=== PATIENT | female | born 1990 | race Caucasian/White ===

== ENCOUNTER 2019-01-10 07:36 | Emergency (ER) | payer OTHER ==
[2019-01-10] MEDS ORDERED: Zofran 4 MG/2 ML VIAL ONE (07:54)
[2019-01-10] MEDS ORDERED: MORPHINE SULFATE 4 MG INJ ONE (07:54)
[2019-01-10] MEDS ORDERED: Sodium Chloride 0.9% 1000 ML 1,000 ML ONE (07:54)
--- NOTE | 2019-01-10 07:55 | ERPHSYRPT ---
- History of Present Illness Time Seen by Provider: 01/10/19 07:52 Historian: patient Exam Limitations: no limitations Patient Subjective Stated Complaint: Pt state "We had a miscarraige in august and I have been bleding for five days and I am still bleeding. Two hours ago I started to have severe abdominal pain." Triage Nursing Assessment: Pt presented alert and oriented X 3, skin pwd. Pt ambulates holding her lower abdomen, pt is shaking uncontrollably and moaning. PT resting in the position, keeping legs bent up. Physician History: 28-year-old white female arrives with complaint of suprapubic abdominal pain for 2 hours positive nausea positive diarrhea. Patient states she's been having a menstrual period for 5 days apparently had a miscarriage in August. Past medical history negative. Past surgical history patient denies. Timing/Duration: today Activities at Onset: none (2 hours) Quality: aching, sharpness Abdominal Pain Onset Location: suprapubic Pain Radiation: no radiation Severity of Pain-Max: moderate Severity of Pain-Current: moderate Modifying Factors: Improves With: nothing Associated Symptoms: back, nausea, No chest pain, No diaphoresis, No diarrhea, No fever/chills, No fatigue, No headache, No heartburn, No loss of appetite, No neck pain, No rash, No shortness of breath, No syncope, No vomiting, No weakness Previous symptoms: no prior history Allergies/Adverse Reactions: No Known Drug Allergies Allergy (Unverified 01/10/19 07:48) Hx Tetanus, Diphtheria Vaccination/Date Given: No Hx Influenza Vaccination/Date Given: No Hx Pneumococcal Vaccination/Date Given: No Immunizations Up to Date: Yes - Review of Systems Constitutional: No Fever, No Chills Eyes: No Symptoms Ears, Nose, & Throat: No Symptoms Respiratory: No Cough, No Dyspnea Cardiac: No Chest Pain, No Edema, No Syncope Abdominal/Gastrointestinal: Abdominal Pain, Nausea, Diarrhea, No Vomiting, No Constipation, No Hematemesis, No Hematochezia, No Melena, No Dysphagia, No Appetite Changes Genitourinary Symptoms: No Dysuria Musculoskeletal: No Back Pain, No Neck Pain Skin: No Rash Neurological: No Dizziness, No Focal Weakness, No Sensory Changes Psychological: No Symptoms Endocrine: No Symptoms All Other Systems: Reviewed and Negative - Past Medical History Pertinent Past Medical History: Yes - Past Surgical History Past Surgical History: No - Social History Smoking Status: Never smoker Exposure to second hand smoke: No Drug Use: none Patient Lives Alone: No - Female History Hx Last Menstrual Period: 01/05/2019 Hx Now: No - Nursing Vital Signs Nursing Vital Signs: Initial Vital Signs Temperature 97.6 F 01/10/19 07:42 Pulse Rate 82 01/10/19 07:42 Respiratory Rate 22 01/10/19 07:42 Blood Pressure 140/69 01/10/19 07:42 O2 Sat by Pulse Oximetry 100 01/10/19 07:42 Pain Scale Pain Intensity 6 - Physical Exam General Appearance: moderate distress, alert Eye Exam: PERRL/EOMI, eyes nml inspection Ears, Nose, Throat Exam: normal ENT inspection, pharynx normal, moist mucous membranes Neck Exam: normal inspection, non-tender, supple, full range of motion Respiratory Exam: normal breath sounds, lungs clear, No respiratory distress Cardiovascular Exam: regular rate/rhythm, normal heart sounds, capillary refill <2 sec ( both) Gastrointestinal/Abdomen Exam: soft, normal bowel sounds, tenderness ( suprapubic tenderness), No distention, No mass, No guarding ( will find a), No ecchymosis, No pulsatile mass, No rebound, No hernia, No hepatomegaly, No organomegaly, No splenomegaly (is) Back Exam: normal inspection, normal range of motion, No CVA tenderness, No vertebral tenderness Extremity Exam: normal inspection, normal range of motion, pelvis stable Neurologic Exam: alert, oriented x 3, cooperative, case management specialist II-XII nml as tested, normal mood/affect, nml cerebellar function, sensation nml, No motor deficits Skin Exam: normal color, warm, dry SpO2 Interpretation: normal (100%) SpO2: 100 - Course Nursing assessment & vital signs reviewed: Yes - CT Exams Abdomen/Pelvis CT Interpretation: Discussed w/radiologist (CT abdomen and pelvis: 1. Mild small bowel wall thickening rule out enteritis distended stomach may be related to. Tiny cul-de-sac fluid presumed from ruptured/leaking cyst 3. Remaining CT abdomen and pelvis without contrast exam is negative.) Ordered Tests: Active Orders 24 hr Category Date Time Status IV Insertion STAT Care 01/10/19 07:50 Active ABDOMEN AND PELVIS W/0 CONTRAS [CT] Stat Exams 01/10/19 08:16 Completed AMYLASE Stat Lab 01/10/19 07:45 Completed CBC W DIFF Stat Lab 01/10/19 07:45 Completed CMP Stat Lab 01/10/19 07:45 Completed HCG QUALITATIVE,SERUM Stat Lab 01/10/19 07:45 Completed LIPASE Stat Lab 01/10/19 07:45 Completed UA W/RFX UR CULTURE Stat Lab 01/10/19 09:36 Completed Medication Summary Discontinued Medications Generic Name Dose Route Start Last Admin Trade Name Yandy PRN Reason Stop Dose Admin Sodium Chloride 1,000 mls @ 999 mls/hr 01/10/19 07:50 01/10/19 09:41 Sodium Chloride 0.9% 1000 Ml IV 01/10/19 08:50 Infused .Q1H1M STA Infusion Sodium Chloride Confirm 01/10/19 07:54 Sodium Chloride 0.9% 1000 Ml Administered 01/10/19 07:55 Dose 1,000 mls @ ud .ROUTE .STK-MED ONE Ketorolac Tromethamine 30 mg 01/10/19 08:17 01/10/19 08:19 Toradol 30 Mg Injection IV 01/10/19 08:18 30 mg STAT ONE Administration Ketorolac Tromethamine Confirm 01/10/19 08:18 Toradol 30 Mg Injection Administered 01/10/19 08:19 Dose 30 mg .ROUTE .STK-MED ONE Morphine Sulfate 4 mg 01/10/19 07:50 01/10/19 07:57 Morphine Sulfate 4 Mg Inj IV 01/10/19 07:51 4 mg STAT ONE Administration Morphine Sulfate Confirm 01/10/19 07:54 Morphine Sulfate 4 Mg Inj Administered 01/10/19 07:55 Dose 4 mg .ROUTE .STK-MED ONE Ondansetron HCl 4 mg 01/10/19 07:50 01/10/19 07:57 Zofran 4 Mg/2 Ml Vial IV 01/10/19 07:51 4 mg STAT ONE Administration Ondansetron HCl Confirm 01/10/19 07:54 Zofran 4 Mg/2 Ml Vial Administered 01/10/19 07:55 Dose 4 mg .ROUTE .STK-MED ONE Potassium Chloride 20 meq 01/10/19 09:48 Klor Con 10 Meq PO 01/10/19 09:49 STAT ONE Lab/Rad Data: Laboratory Result Diagrams 01/10/19 07:45 01/10/19 07:45 Laboratory Results 01/10/19 01/10/19 01/10/19 Range/Units 09:36 07:45 07:45 WBC (4.0-10.5) K/mm3 RBC (4.1-5.4) M/mm3 Hgb (12.0-16.0) gm/dl Hct (35-47) % MCV (78-100) fl MCH (26-32) pg MCHC (32-36) g/dl RDW (11.5-14.0) % Plt Count (150-450) K/mm3 MPV (6-9.5) fl Gran % (36.0-66.0) % Eos # (Auto) (0-0.5) Absolute Lymphs (auto) (1.0-4.6) Absolute Monos (auto) (0.0-1.3) Lymphocytes % (24.0-44.0) % Monocytes % (0.0-12.0) % Eosinophils % (0.00-5.0) % Basophils % (0.0-0.4) % Absolute Granulocytes (1.4-6.9) Basophils # (0-0.4) Sodium 141 (137-145) mmol/L Potassium 3.2 L (3.5-5.1) mmol/L Chloride 104 (98-107) mmol/L Carbon Dioxide 23 (22-30) mmol/L Anion Gap 17.1 H (5-15) MEQ/L BUN 12 (7-17) mg/dL Creatinine 0.62 (0.52-1.04) mg/dL Estimated GFR > 60.0 ML/MIN Glucose 120 H (74-106) mg/dL Calcium 10.0 (8.4-10.2) mg/dL Total Bilirubin 0.40 (0.2-1.3) mg/dL AST 20 (14-36) U/L ALT 14 (0-35) U/L Alkaline Phosphatase 64 (38-126) U/L Serum Total Protein 7.9 (6.3-8.2) g/dL Albumin 4.6 (3.5-5.0) g/dL Amylase 75 (30-110) U/L Lipase 82 (23-300) U/L Serum , Qual NEGATIVE (Negative) Urine Color YELLOW (YELLOW) Urine Appearance CLOUDY (CLEAR) Urine pH 7.0 (5-6) Ur Specific [place] 1.019 (1.005-1.025) Urine Protein NEGATIVE (Negative) Urine Ketones SMALL (NEGATIVE) Urine Blood MODERATE (0-5) Abilio/ul Urine Nitrite NEGATIVE (NEGATIVE) Urine Bilirubin NEGATIVE (NEGATIVE) Urine Urobilinogen NEGATIVE (0-1) mg/dL Ur Leukocyte Esterase NEGATIVE (NEGATIVE) Urine WBC (Auto) 0-2 (0-5) /HPF Urine RBC (Auto) 11-15 (0-2) /HPF U Epithel Cells (Auto) NONE (FEW) /HPF Urine Bacteria (Auto) RARE (NEGATIVE) /HPF Urine Mucus (Auto) SLIGHT (NEGATIVE) /HPF Urine Culture Reflexed NO (NO) Urine Glucose NEGATIVE (NEGATIVE) mg/dL 01/10/19 Range/Units 07:45 WBC 9.0 (4.0-10.5) K/mm3 RBC 4.60 (4.1-5.4) M/mm3 Hgb 14.3 (12.0-16.0) gm/dl Hct 43.4 (35-47) % MCV 94.3 (78-100) fl MCH 31.1 (26-32) pg MCHC 32.9 (32-36) g/dl RDW 12.5 (11.5-14.0) % Plt Count 312 (150-450) K/mm3 MPV 11.3 H (6-9.5) fl Gran % 50.7 (36.0-66.0) % Eos # (Auto) 0.35 (0-0.5) Absolute Lymphs (auto) 3.16 (1.0-4.6) Absolute Monos (auto) 0.88 (0.0-1.3) Lymphocytes % 35.2 (24.0-44.0) % Monocytes % 9.8 (0.0-12.0) % Eosinophils % 3.9 (0.00-5.0) % Basophils % 0.4 (0.0-0.4) % Absolute Granulocytes 4.56 (1.4-6.9) Basophils # 0.04 (0-0.4) Sodium (137-145) mmol/L Potassium (3.5-5.1) mmol/L Chloride (98-107) mmol/L Carbon Dioxide (22-30) mmol/L Anion Gap (5-15) MEQ/L BUN (7-17) mg/dL Creatinine (0.52-1.04) mg/dL Estimated GFR ML/MIN Glucose (74-106) mg/dL Calcium (8.4-10.2) mg/dL Total Bilirubin (0.2-1.3) mg/dL AST (14-36) U/L ALT (0-35) U/L Alkaline Phosphatase (38-126) U/L Serum Total Protein (6.3-8.2) g/dL Albumin (3.5-5.0) g/dL Amylase (30-110) U/L Lipase (23-300) U/L Serum , Qual (Negative) Urine Color (YELLOW) Urine Appearance (CLEAR) Urine pH (5-6) Ur Specific [place] (1.005-1.025) Urine Protein (Negative) Urine Ketones (NEGATIVE) Urine Blood (0-5) Abilio/ul Urine Nitrite (NEGATIVE) Urine Bilirubin (NEGATIVE) Urine Urobilinogen (0-1) mg/dL Ur Leukocyte Esterase (NEGATIVE) Urine WBC (Auto) (0-5) /HPF Urine RBC (Auto) (0-2) /HPF U Epithel Cells (Auto) (FEW) /HPF Urine Bacteria (Auto) (NEGATIVE) /HPF Urine Mucus (Auto) (NEGATIVE) /HPF Urine Culture Reflexed (NO) Urine Glucose (NEGATIVE) mg/dL - Progress Progress: improved Progress Note: 01/10/19 09:55 28-year-old white female previously healthy arrives with complaint of severe suprapubic abdominal pain which has been going on for 2 hours prior to arrival. On arrival patient was severe pain in her suprapubic region patient with some suprapubic tenderness otherwise physical exam essentially normal vitals were stable. Patient was essentially normal laboratory studies with the exception of a potassium of 3.2 patient's anion gap was slightly elevated at 17.1 Urinalysis positive for microcytic hematuria however patient is a. Otherwise negative there is a trace of ketones. Patient's CT of the abdomen impression 1 mild small bowel wall thickening. Rule out enteritis. Distended stomach may be related to. Tiny cul-de-sac fluid present from ruptured/leaking cyst. Remaining CT of the abdomen without contrast is negative. Patient is given 1 L of normal saline she was given 4 mg morphine 4 mg of Zofran and 30 mg of Toradol IV she now is markedly improved and feeling much better. Will plan to discharge patient impression 1 abdominal pain 2, ruptured ovarian cyst. 3. Enteritis. Plan home, plenty of fluids clear fluids only 24-48 hours as needed for pain will write for Bunn for pain. Patient denies illicit drug use she states she has no problems with narcotics inspect is negative. Patient may also take Advil as well. - Departure Departure Disposition: Home Clinical Impression: Ruptured ovarian cyst, Enteritis Abdominal pain Qualifiers: Abdominal location: lower abdomen, unspecified Qualified Code(s): R10.30 - Lower abdominal pain, unspecified Condition: Fair Critical Care Time: No Referrals: JODY BENDER MD [Primary Care Provider] - Additional Instructions: Return home. Plenty of fluids. Clear fluids 24-48 hours if abdominal pain. Bunn as prescribed. May also take Advil [id number] every 6 hours. Followup with your family symptoms are worse, no better in 48 hours, or persist longer than 72 hours. Return for acute distress or for severe symptoms or for any problems. Prescriptions: Hydrocodone/APAP 5-325 Tab^^^ [Bunn 5-325 Tablet^^^] 1 tab PO Q6HPRN PRN #10 tablet MDD 6 PRN Reason: abdominal pain
[2019-01-10] MEDS: Zofran 4 MG/2 ML VIAL IV ONE (07:57)
[2019-01-10] MEDS: Sodium Chloride 0.9% 1000 ML 1,000 ML IV STA (07:57)
[2019-01-10] MEDS: MORPHINE SULFATE 4 MG INJ IV ONE (07:57)
[2019-01-10 08:01] LABS: BASOPHIL % 0.4 % (0.0-0.4); Basophil (Absolute #) 0.04 (0-0.4); Eosinophil % 3.9 % (0.00-5.0); Eosinophil (Absolute #) 0.35 (0-0.5); Granulocyte Absolute (ANC) 4.56 (1.4-6.9); Granulocytes % 50.7 % (36.0-66.0); Hematocrit 43.4 % (35-47); Hemoglobin 14.3 gm/dl (12.0-16.0); Lymphocyte (Absolute #) 3.16 (1.0-4.6); Lymphocytes % 35.2 % (24.0-44.0); Mean Cell Volume 94.3 fl (78-100); Mean Corpuscular Hemoglobin 31.1 pg (26-32); Mean Corpuscular Hgb Concent. 32.9 g/dl (32-36); Mean Platelet Volume 11.3 fl (6-9.5); Monocyte (Absolute #) 0.88 (0.0-1.3); Monocytes % 9.8 % (0.0-12.0); Platelet Count 312 K/mm3 (150-450); Red Cell Distribution Width 12.5 % (11.5-14.0)
[2019-01-10 08:12] LABS: ALBUMIN 4.6 g/dL (3.5-5.0); ALKALINE PHOSPHATASE 64 U/L (38-126); AMYLASE 75 U/L (30-110); ANION GAP 17.1 MEQ/L (5-15); BLOOD UREA NITROGEN 12 mg/dL (7-17); CHLORIDE 104 mmol/L (98-107); Carbon Dioxide 23 mmol/L (22-30); Creatinine 1 0.62 mg/dL (0.52-1.04); Glucose 120 mg/dL (74-106); Potassium 3.2 mmol/L (3.5-5.1); SGOT/AST 20 U/L (14-36); SGPT/ALT 14 U/L (0-35); SODIUM 141 mmol/L (137-145); Total Protein 7.9 g/dL (6.3-8.2)
[2019-01-10] MEDS ORDERED: TORAdol 30 mg Injection ONE (08:18)
[2019-01-10] MEDS: TORAdol 30 mg Injection IV ONE (08:19)
--- NOTE | 2019-01-10 09:41 | XRAY ---
Indication: Abdomen/pelvic pain. Diarrhea. Multiple contiguous axial images obtained through the abdomen and pelvis without contrast. Comparison: None Lung bases demonstrate minimal bilateral dependent atelectasis. No infiltrate or effusion. Heart is not enlarged. Stomach is moderately distended with fluid with some food mixed in. Noncontrasted bowel loops appear nonobstructed. A few left abdomen small bowel loops demonstrates mild circumferential wall thickening, incomplete distention versus enteritis. Normal appendix. Tiny cul-de-sac fluid possibly physiologic from rupture/leaking cyst. No free air. Gallbladder mildly distended without gallstones or biliary distention. Remaining liver, pancreas, spleen, adrenal glands, kidneys, ureters, bladder, uterus, and aorta appear unremarkable for noncontrast exam. Osseous structures intact. No ventral or inguinal hernias. Impression: 1. Mild small bowel wall thickening. Rule out enteritis. Distended stomach may be related. 2. Tiny cul-de-sac fluid presumed from rupture/leaking cyst. 3. Remaining CT abdomen/pelvis without contrast exam is negative. CT DI 8.87
[2019-01-10 09:45] VITALS: O2SAT 100
[2019-01-10 09:47] LABS: Appearance CLOUDY (CLEAR); Bacteria RARE /HPF (NEGATIVE); Bilirubin NEGATIVE (NEGATIVE); Blood MODERATE Ery/ul (0-5); Glucose NEGATIVE (NEGATIVE); Ketones SMALL (NEGATIVE); Leukocyte Esterase NEGATIVE (NEGATIVE); Mucus SLIGHT /HPF (NEGATIVE); Nitrite NEGATIVE (NEGATIVE); Protein,Urine Dip NEGATIVE (Negative); Specific Gravity 1.019 (1.005-1.025); Urobilinogen NEGATIVE mg/dL (0-1); WBC 0-2 /HPF (0-5)
[2019-01-10] MEDS ORDERED: Klor Con 10 MEQ PO ONE (10:03)
[2019-01-10] MEDS: Klor Con 10 MEQ PO ONE (10:05)
[2019-01-10 10:14] VITALS: BP 117/60; PULSE 66
== END 2019-01-10 10:25 | disposition home or self-care (01) ==
LOC: ED 07:36
DX: R10.30 Lower abdominal pain, unspecified (principal); N83.209 Unspecified ovarian cyst, unspecified side; K52.9 Noninfective gastroenteritis and colitis, unspecified
CPT/HCPCS: 36000; 36415; 74176; 80053; 81001; 81025; 82150; 83690; 85025; 96360; 96374; 96375; 99284; J1885; J2270; J2405; A9270-GY